=== PATIENT | female | born 1975 | race Caucasian/White ===

== ENCOUNTER 2021-11-25 10:26 | Inpatient (IN) | payer MEDICAID, OTHER ==
[~2021-11-25] VITALS: Ht 172.7 cm; Wt 56.3 kg
[2021-11-25] MEDS ORDERED: BOOSTRIX/ADACEL VACCINE (DIPHTH/PERTUSS/ACELL/TETANUS) 0.5ML SYR IM.IMMUN ONE (10:40)
[2021-11-25 11:30] LABS: HEMATOCRIT 43.2 % (36.0-47.0); HEMOGLOBIN 14.2 g/dl (12.0-15.5); MEAN CORPUSCULAR HEMOGLOBIN 30.1 pg (27.0-33.0); MEAN CORPUSCULAR HGB CONC 32.9 g/dl (32.0-36.5); MEAN CORPUSCULAR VOLUME 91.5 fl (80.0-96.0); PLATELET COUNT, AUTOMATED 241 10^3/uL (150-450); RED BLOOD COUNT 4.72 10^6/uL (4.00-5.40); WHITE BLOOD COUNT 5.7 10^3/uL (4.0-10.0)
[2021-11-25 12:07] LABS: RSV AMPLIFICATION NEGATIVE (NEGATIVE)
[2021-11-25 12:20] LABS: AMPHETAMINES LEVEL URINE NEGATIVE (NEGATIVE); BARBITURATES URINE NEGATIVE (NEGATIVE); BENZODIAZEPINES URINE NEGATIVE (NEGATIVE); CANNABINOIDS URINE NEGATIVE (NEGATIVE); COCAINE METABOLITE URINE NEGATIVE (NEGATIVE); METHADONE URINE NEGATIVE (NEGATIVE); OPIATES URINE NEGATIVE (NEGATIVE); PHENCYCLIDINE URINE NEGATIVE (NEGATIVE)
[2021-11-25 12:37] LABS: ACETAMINOPHEN LEVEL < 2.0 UG/ML (10.0-30.0); ALT/SGPT 22 U/L (12-78); BILIRUBIN,DIRECT 0.2 MG/DL (0.0-0.2); BILIRUBIN,TOTAL 0.5 MG/DL (0.2-1.0); BLOOD UREA NITROGEN 8 MG/DL (7-18); CALCIUM LEVEL 9.3 MG/DL (8.5-10.1); CARBON DIOXIDE LEVEL 25 MEQ/L (21-32); CHLORIDE LEVEL 110 MEQ/L (98-107); CREATININE FOR GFR 0.75 MG/DL (0.55-1.30); ETHYL ALCOHOL (ETHANOL) 0.003 % (0.000-0.010); GLOMERULAR FILTRATION RATE > 60.0 (>58); GLUCOSE, FASTING 100 MG/DL (70-100); POTASSIUM SERUM 4.4 MEQ/L (3.5-5.1); SALICYLATE LEVEL < 1.7 MG/DL (5.0-30.0); SODIUM LEVEL 140 MEQ/L (136-145); TOTAL PROTEIN 7.5 GM/DL (6.4-8.2)
[2021-11-25] MEDS ORDERED: ACETAMINOPHEN TAB 650MG DOSE (2X325MG) PO ONE (17:30)
[2021-11-25] MEDS ORDERED: ACETAMINOPHEN TAB 650MG DOSE (2X325MG) PO PRN (19:15)
[2021-11-25] MEDS ORDERED: MAALOX 30 ML SUSP *UDC PO PRN (19:15)
[2021-11-25] MEDS ORDERED: traZODone 50 MG TAB PO PRN (19:15)
[2021-11-25] MEDS ORDERED: MOM 30ML SUSPENSION UDC PO PRN (19:15)
[2021-11-25] MEDS ORDERED: LORazepam 1 MG TAB PO PRN (19:15)
[2021-11-25] MEDS ORDERED: ACET-897 PO (21:57)
[2021-11-25] MEDS ORDERED: HOME MED LIST COMPLETE! XX SCH (22:00)
[2021-11-26] MEDS ORDERED: ACETAMINOPHEN TAB 650MG DOSE (2X325MG) PO ONE (09:40)
[2021-11-28 09:45] LABS: RSV AMPLIFICATION NEGATIVE (NEGATIVE)
[2021-11-28] MEDS ORDERED: MOM 30ML SUSPENSION UDC PO PRN (11:00)
[2021-11-28] MEDS ORDERED: OLANZapine ORAL DISINTEGRATING TAB 5MG PO PRN (11:00)
[2021-11-28] MEDS ORDERED: MAALOX 30 ML SUSP *UDC PO PRN (11:00)
[2021-11-28] MEDS ORDERED: traZODone 50 MG TAB PO PRN (11:00)
[2021-11-28 12:45] VITALS: BP 128/78
[2021-11-29 06:49] VITALS: BP 115/72
[2021-11-29] MEDS: IBUPROFEN 400MG TAB PO PRN (10:26)
[2021-11-29 18:13] VITALS: BP 117/68
[2021-11-30 06:35] VITALS: BP 117/73
[2021-11-30] MEDS: SERTRALINE HCL 50 MG TAB PO SCH (09:48)
[2021-12-01 06:45] VITALS: BP 118/68
[2021-12-01] MEDS: SERTRALINE HCL 50 MG TAB PO SCH (08:11)
[2021-12-01 18:30] VITALS: BP 110/63
[2021-12-02 06:43] VITALS: BP 113/65
[2021-12-02] MEDS: SERTRALINE HCL 50 MG TAB PO SCH (08:17)
[2021-12-02] MEDS: IBUPROFEN 400MG TAB PO PRN (18:53)
[2021-12-02 19:08] VITALS: BP 126/66
[2021-12-03 06:27] VITALS: BP 113/66
[2021-12-03] MEDS: SERTRALINE HCL 50 MG TAB PO SCH (08:20)
[2021-12-04 06:19] VITALS: BP 105/69
[2021-12-04] MEDS: SERTRALINE HCL 50 MG TAB PO SCH (08:07)
[2021-12-04 19:51] VITALS: BP 121/64
[2021-12-05 06:10] VITALS: BP 120/70
[2021-12-05] MEDS: SERTRALINE HCL 50 MG TAB PO SCH (08:15)
[2021-12-05] MEDS ORDERED: SERT50TA29 PO (08:57)
== END 2021-12-05 13:29 | disposition home or self-care (01) | DRG 754 ==
LOC: M ED 10:26 → M ED INP 19:13 → UNDOADMIN 19:13 → M ED INP 11-28 10:56 → M PSY 11-28 12:13
PROVIDERS: ADMIT Psychiatry & Neurology Psychiatry; ATTEND Student in an Organized Health Care Education/Training Program
DX: F34.1 Dysthymic disorder (principal); R45.851 Suicidal ideations; F32.89 Other specified depressive episodes; Z91.52 Personal history of nonsuicidal self-harm; Z63.8 Other specified problems related to primary support group; Z20.822 Contact with and (suspected) exposure to COVID-19; S61.512A Laceration without foreign body of left wrist, initial encounter; S61.511A Laceration without foreign body of right wrist, initial encounter; X78.9XXA Intentional self-harm by unspecified sharp object, initial encounter; Y92.009 Unspecified place in unspecified non-institutional (private) residence as the place of occurrence of the external cause

== ENCOUNTER 2023-05-15 10:13 | Inpatient (IN) | payer OTHER ==
[~2023-05-15] VITALS: Ht 170.2 cm; Wt 61.4 kg
[~2023-05-15 10:13] MED LIST: ACET-897 PO; SERT50TA29 PO
[2023-05-15] MEDS ORDERED: BUSP10TA PO (10:56)
[2023-05-15] MEDS ORDERED: LEXA1TAB2 PO (10:56)
[2023-05-15 11:49] LABS: HEMATOCRIT 45.9 % (36.0-47.0); HEMOGLOBIN 15.3 g/dl (12.0-15.5); MEAN CORPUSCULAR HEMOGLOBIN 30.2 pg (27.0-33.0); MEAN CORPUSCULAR HGB CONC 33.3 g/dl (32.0-36.5); MEAN CORPUSCULAR VOLUME 90.5 fl (80.0-96.0); PLATELET COUNT, AUTOMATED 232 10^3/uL (150-450); RED BLOOD COUNT 5.07 10^6/uL (4.00-5.40); WHITE BLOOD COUNT 5.5 10^3/uL (4.0-10.0)
[2023-05-15 12:08] LABS: AMPHETAMINES LEVEL URINE NEGATIVE (NEGATIVE); BARBITURATES URINE NEGATIVE (NEGATIVE)
[2023-05-15 12:09] LABS: BENZODIAZEPINES URINE NEGATIVE (NEGATIVE); CANNABINOIDS URINE NEGATIVE (NEGATIVE); COCAINE METABOLITE URINE NEGATIVE (NEGATIVE); METHADONE URINE NEGATIVE (NEGATIVE); OPIATES URINE NEGATIVE (NEGATIVE); PHENCYCLIDINE URINE NEGATIVE (NEGATIVE)
[2023-05-15 12:13] LABS: ETHYL ALCOHOL (ETHANOL) < 0.003 % (0.000-0.010); HCG, SERUM QUALITATIVE NEGATIVE (NEGATIVE)
[2023-05-15 12:14] LABS: ALBUMIN 3.9 G/DL (3.2-5.2); ALKALINE PHOSPHATASE 60 U/L (46-116); ALT/SGPT 25 U/L (7.0-40); AST/SGOT 25 U/L (<34); BILIRUBIN,DIRECT 0.3 MG/DL (<0.4); BILIRUBIN,TOTAL 1.1 MG/DL (0.3-1.2); BLOOD UREA NITROGEN 14 MG/DL (9-23); CALCIUM LEVEL 9.5 MG/DL (8.5-10.1); CARBON DIOXIDE LEVEL 27 MMOL/L (20-31); CHLORIDE LEVEL 101 MMOL/L (98-107); CREATININE FOR GFR 0.75 MG/DL (0.55-1.30); GLOMERULAR FILTRATION RATE > 60.0 (>58); GLUCOSE, FASTING 97 MG/DL (60-100); POTASSIUM SERUM 4.3 MMOL/L (3.5-5.1); SALICYLATE LEVEL < 3.0 MG/DL (<30); SODIUM LEVEL 137 MMOL/L (136-145); TOTAL PROTEIN 7.2 G/DL (5.7-8.2)
[2023-05-15 12:15] LABS: THYROID STIMULATING HORMONE 2.195 uIU/ML (0.55-4.78)
[2023-05-15] MEDS ORDERED: MAALOX 30 ML SUSP *UDC PO PRN (14:10)
[2023-05-15] MEDS ORDERED: MOM 30ML SUSPENSION UDC PO PRN (14:10)
[2023-05-15] MEDS ORDERED: IBUPROFEN 400MG TAB PO PRN (14:10)
[2023-05-15] MEDS ORDERED: traZODone 50 MG TAB PO PRN (14:10)
[2023-05-15] MEDS ORDERED: ACET-907 PO (15:03)
[2023-05-15] MEDS ORDERED: HOME MED LIST COMPLETE! XX SCH (15:20)
[2023-05-15 15:59] VITALS: BP 129/83; TEMP 97.1
[2023-05-15] MEDS: ACETAMINOPHEN TAB 650MG DOSE (2X325MG) PO PRN (16:34)
[2023-05-15] MEDS: diphenhydrAMINE 25MG CAP PO PRN (20:48)
[2023-05-16 06:16] VITALS: BP 109/64; TEMP 97.3; O2SAT 99
[2023-05-16] MEDS: ESCITALOPRAM OXALATE 10 MG TAB (LEXAPRO) PO SCH (09:25)
[2023-05-16] MEDS: busPIRone 10 MG TAB PO SCH (09:25)
[2023-05-16 18:14] VITALS: BP 130/77; TEMP 97.6
[2023-05-17 06:11] VITALS: BP 130/87; TEMP 97; O2SAT 99
== END 2023-05-17 12:18 | disposition home or self-care (01) | DRG 751 ==
LOC: M ED 10:13 → M ED INP 14:07 → M PSY 15:53
PROVIDERS: ADMIT Student in an Organized Health Care Education/Training Program; ATTEND Student in an Organized Health Care Education/Training Program
DX: F33.1 Major depressive disorder, recurrent, moderate (principal); R45.851 Suicidal ideations; F10.20 Alcohol dependence, uncomplicated; F41.9 Anxiety disorder, unspecified; Z56.6 Other physical and mental strain related to work; Z91.51 Personal history of suicidal behavior; Z62.812 Personal history of neglect in childhood; Z79.899 Other long term (current) drug therapy; Z20.822 Contact with and (suspected) exposure to COVID-19; Z91.52 Personal history of nonsuicidal self-harm